=== PATIENT | male | born 1945 | race Caucasian/White ===

== ENCOUNTER → 2017-02-08 | Outpatient (CLI) | payer OTHER ==
[~2017-02-08] MED LIST: LISI-461 PO; METFTAB PO; POTA99TA PO; SIMV80TA2 PO; SPIR1TAB72 PO; SPRIN/30 INH; VNTHFA/IN INH
[2017-02-08 12:20] LABS: BASO % 0.1 %; BASO ABS # 0.01 K/uL (0-0.2); COMPLETE YES; EOS % 3.6 %; HEMATOCRIT 48.8 % (42-52); IG% 0.2 %; LYMPH % 27.8 %; LYMPH ABS # 2.35 K/uL (1.2-3.4); MEAN CELL VOLUME 97.4 fL (80-100); MEAN CORPUSCULAR HEMOGLOBIN 30.9 pg (25-34); MEAN CORPUSCULAR HGB CONC 31.8 g/dl (32-36); MEAN PLATELET VOLUME 10.3 fL (7.4-10.4); MONO % 9.1 %; NEUT % 59.2 %; PLATELET COUNT 266 K/uL (130-400); RED BLOOD COUNT 5.01 M/uL (4.7-6.1); WHITE BLOOD COUNT 8.44 K/uL (4.8-10.8)
[2017-02-08 12:37] LABS: BLOOD UREA NITROGEN 27 mg/dl (7-18); BUN/CREATININE RATIO 20.8 (10-20); CARBON DIOXIDE 25 mmol/L (21-32); CHLORIDE 108 mmol/L (98-107); CHOLESTEROL 119 mg/dl (0-200); GLUCOSE 135 mg/dl (70-99); POTASSIUM 4.3 mmol/L (3.5-5.1); SODIUM 144 mmol/L (136-145); TRIGLYCERIDES 84 mg/dl (0-150); VERY LOW DENSITY LIPOPROT CALC 17 mg/dl
[2017-02-08 12:40] LABS: URINE APPEARANCE CLEAR (CLEAR); URINE BILIRUBIN NEG (NEG); URINE COLOR YELLOW; URINE EPITHELIAL CELL AUTO 0-5 /lpf (0-5); URINE NITRITE NEG (NEG); URINE PH 6.5 (4.5-7.5); UROBILINOGEN NEG (NEG); ZZUR CULT IF INDIC CLEAN CATCH NO
[2017-02-08 12:41] LABS: CHOLESTEROL/HDL RATIO 2.4; HDL CHOLESTEROL 50 mg/dl; LDL CHOLESTEROL CALCULATED 52 mg/dl
[2017-02-08 12:46] LABS: CALCIUM 8.7 mg/dl (8.5-10.1)
[2017-02-08 12:51] LABS: MANUAL MICROSCOPIC REQUIRED? NO; REVIEW REQ? NO
== END | disposition home or self-care (01) ==
LOC: C.LABBFT 07:35
PROVIDERS: ATTEND Physician Assistant Medical
DX: E78.5 Hyperlipidemia, unspecified (principal); E11.9 Type 2 diabetes mellitus without complications; I10 Essential (primary) hypertension

== ENCOUNTER → 2017-07-25 | Outpatient (CLI) | payer OTHER | END | disposition home or self-care (01) | LOC: C.LABBFT 08:33 | PROVIDERS: ATTEND Urology | DX: N40.0 Benign prostatic hyperplasia without lower urinary tract symptoms (principal) ==

== ENCOUNTER → 2017-08-25 | Outpatient (CLI) | payer OTHER ==
[2017-08-25 12:30] LABS: BLOOD UREA NITROGEN 37 mg/dl (7-18); BUN/CREATININE RATIO 28.2 (10-20); CALCIUM 9.1 mg/dl (8.5-10.1); CARBON DIOXIDE 26 mmol/L (21-32); CHLORIDE 105 mmol/L (98-107); CREATININE 1.31 mg/dl (0.60-1.40); GLUCOSE 147 mg/dl (70-99); POTASSIUM 4.2 mmol/L (3.5-5.1); SODIUM 138 mmol/L (136-145)
[2017-08-25 12:40] LABS: ESTIMATED AVERAGE GLUCOSE 148 mg/dl; HA1C FLAG Normal (Normal)
== END | disposition home or self-care (01) ==
LOC: C.LABBFT 08:23
PROVIDERS: ATTEND Internal Medicine
DX: E11.9 Type 2 diabetes mellitus without complications (principal); I10 Essential (primary) hypertension

== ENCOUNTER → 2017-09-05 | Outpatient (CLI) | payer OTHER ==
--- NOTE | 2017-09-05 13:16 | DIAGNOSTIC IMAGING REPORT ---
R SHOULDER MIN 2 VIEWS ROUTINE CLINICAL HISTORY: Decreased range of motion. COMPARISON: MRI of the right shoulder December 07, 2008. FINDINGS: Alignment of the right shoulder is anatomic. No fracture or suspicious osseous lesion is present. There is moderate acromioclavicular joint osteoarthritis and mild glenohumeral joint osteoarthritis. A 4 mm calcific density along the superolateral aspect of the right right suggests calcific tendinitis. IMPRESSION: 1. Moderate osteoarthritis of the right acromioclavicular joint and mild osteoarthritis of the right glenohumeral joint. 2. Findings suggestive of mild calcific tendinitis of the right rotator cuff. Electronically signed by: Denny Adler M.D. 09/05/2017 1:15 PM Dictated Date/Time: 09/05/2017 1:13 PM
== END | disposition home or self-care (01) ==
LOC: C.RAD1850 13:02
PROVIDERS: ATTEND Internal Medicine
DX: R05 Cough (principal); M19.011 Primary osteoarthritis, right shoulder

== ENCOUNTER → 2017-10-25 | Outpatient (CLI) | payer OTHER ==
--- NOTE | 2017-10-25 16:00 | DIAGNOSTIC IMAGING REPORT ---
CHEST 2 VIEWS ROUTINE HISTORY: J44.9 Chronic obstructive pulmonary [id number] COMPARISON: None. FINDINGS: The lungs are clear. Cardiac silhouette is normal in size. No pleural effusions. No pneumothorax. IMPRESSION: No acute process. Electronically signed by: Segundo Ba M.D. 10/25/2017 3:59 PM Dictated Date/Time: 10/25/2017 3:56 PM
== END | disposition home or self-care (01) ==
LOC: C.RAD1850 15:40
PROVIDERS: ATTEND Physician Assistant Medical
DX: J44.9 Chronic obstructive pulmonary disease, unspecified (principal)